=== PATIENT | female | born 1965 ===

== ENCOUNTER 2019-08-15 12:34 | Day surgery (SDC) | payer OTHER ==
[~2019-08-15 12:34] MED LIST: CLONAZEPAM0.5 MG PO; PROZAC20 MG PO; SEROQUEL XR150 MG PO
== END 2019-08-15 22:50 | disposition home or self-care (01) ==
LOC: CIR.AMB 12:34
DX: D26.0 Other benign neoplasm of cervix uteri (principal); N72 Inflammatory disease of cervix uteri